=== PATIENT | female | born 1960 | race Two or more races ===

== ENCOUNTER 2019-09-27 09:30 | Outpatient (CLI) | payer MEDICARE ==
[2019-09-27] MEDS ORDERED: COLLAGENASE 5 GM TUBE UD TP ONE (10:54)
== END 2019-09-27 23:59 | disposition home or self-care (01) ==
LOC: WOU 09:30
PROVIDERS: ATTEND Specialist
DX: Z01.818 Encounter for other preprocedural examination (principal); L59.8 Other specified disorders of the skin and subcutaneous tissue related to radiation; L98.499 Non-pressure chronic ulcer of skin of other sites with unspecified severity
CPT/HCPCS: G0463

== ENCOUNTER 2019-09-28 09:14 | Outpatient (CLI) | payer MEDICARE | END 2019-09-28 23:59 | disposition home or self-care (01) | LOC: RAD 09:14 | PROVIDERS: ATTEND Specialist | DX: R05 Cough (principal) | CPT/HCPCS: 71046 ==

== ENCOUNTER 2019-10-11 09:45 | Outpatient (CLI) | payer MEDICARE ==
[2019-10-11] MEDS ORDERED: SILVER SULFADIAZINE CREAM 25 GM TUBE ONE (10:10)
== END 2019-10-11 23:59 | disposition home or self-care (01) ==
LOC: WOU 09:45
PROVIDERS: ATTEND Specialist
DX: L03.311 Cellulitis of abdominal wall (principal); L98.499 Non-pressure chronic ulcer of skin of other sites with unspecified severity; L59.8 Other specified disorders of the skin and subcutaneous tissue related to radiation
CPT/HCPCS: G0463